=== PATIENT | female | born 1975 | race Caucasian/White ===

== ENCOUNTER 2017-11-01 09:54 | Emergency (ER) | payer OTHER ==
[~2017-11-01] VITALS: Ht 157.5 cm; Wt 56.7 kg
[2017-11-01 11:05] VITALS: BP 123/79
--- NOTE | 2017-11-01 13:14 | Emergency Room Report ---
History of Present Illness General Chief Complaint: Lower Extremity Injury Source: Patient Present Illness [facility] Patient presents emergency department today complaining of right toe pain. Patient states that she accidentally stubbed her toe last night and she appears have a deformity on her right fifth toe. She denies any other injuries. No other complaints are noted. Initially she wanted evaluation then subsequently decided that she did not want x-rays because she was afraid of the cost of the x -rays. No other complaints are noted. No other modifying factors. No other associated signs and symptoms. No other complaints were noted. Allergies: Coded Allergies: No Known Allergies (Unverified , 11/01/17) Patient History Past Medical History: none Past Surgical History: none Pertinent Family History: none Social History: Denies: smoking, alcohol use, drug use Last Menstrual Period: 11/11/17 Reviewed Nursing Documentation: PMH: Agreed; PSxH: Agreed Nursing Documentation-PMH Past Medical History: No History, Except For Review of Systems All Other Systems: negative except mentioned in HPI Physical Exam Vital Signs Date Time Temp Pulse Resp B/P (MAP) Pulse Ox O2 Delivery O2 Flow Rate FiO2 11/01/17 10:06 98.1 60 18 123/79 100 Room Air 98.1 Sp02 EP Interpretation: reviewed, normal General Appearance: normal inspection, well appearing, no apparent distress Head: atraumatic ENT: normal voice Respiratory: no respiratory distress Cardiovascular #1: no edema Musculoskeletal: tender - right 5th toe, deviated to right Neurologic: alert, responsive Psychiatric: normal inspection, judgement/insight normal Skin: normal inspection, normal color Medical Decision Making Diagnostic Impression: Primary Impression: Foot fracture, right Additional Impression: Toe fracture, right ER Course Patient presents emergency department today complaint right little toe pain. Differential considerations cofactors discussion versus strain. Given patient' s presentation I felt the patient likely suffered fracture. I did recommend an x-ray but patient declined because of cost reasons. Given patient's presentation I felt the patient likely had a fracture. Because patient crying x -ray I cannot be 100% certain instead patient will be treated as if she had a fractured. Her toes are angel taped the patient was placed in a hard walking shoe. Patient was advised follow-up outpatient podiatry.Patient is advised to follow up with primary doctor in 2-3 days and return the emergency room for any worsening symptoms and as needed. Last Vital Signs Date Time Temp Pulse Resp B/P (MAP) Pulse Ox O2 Delivery O2 Flow Rate FiO2 11/01/17 11:05 98.1 18 123/79 100 Room Air 98.1 11/01/17 10:06 60 Status: improved Disposition: HOME, SELF-CARE Condition: Stable Referrals: NON PHYSICIAN (PCP) Patient Instructions: Toe Fracture, How to Angel Tape Ramos Calzada MD Nov 01, 2017 13:14
== END 2017-11-01 11:05 | disposition home or self-care (01) ==
LOC: EMR 11:05
DX: S92.501A Displaced unspecified fracture of right lesser toe(s), initial encounter for closed fracture (principal); W22.8XXA Striking against or struck by other objects, initial encounter; Y92.9 Unspecified place or not applicable
CPT/HCPCS: 99283